=== PATIENT | female | born 1995 | race Caucasian/White ===

== ENCOUNTER 2017-07-03 19:18 | Emergency (ER) | payer BC ==
[2017-07-03 19:26] VITALS: TEMP 98.1
[2017-07-03] MEDS ORDERED: MICROGESTIN 1.51 TAB PO (19:45)
[2017-07-03] MEDS ORDERED: IMITREX 25MG TA25 MG PO (20:46)
[2017-07-03] MEDS ORDERED: NOVOLOG 100U100 U/M1 SQ (20:48)
[2017-07-03 21:55] VITALS: BP 133/88
[2017-07-03 22:57] VITALS: PULSE 81
== END 2017-07-03 22:58 | disposition home or self-care (01) ==
LOC: COL.ER 19:18
DX: R51 Headache (principal); E10.9 Type 1 diabetes mellitus without complications; F12.90 Cannabis use, unspecified, uncomplicated; Z79.4 Long term (current) use of insulin
CPT/HCPCS: J1200; J1885; J2765; J7030

== ENCOUNTER 2018-02-07 20:26 | Emergency (ER) | payer OTHER ==
[~2018-02-07] VITALS: Ht 167.6 cm; Wt 56.8 kg
[~2018-02-07 20:26] MED LIST: IMITREX 25MG TA25 MG PO; MICROGESTIN 1.51 TAB PO; NOVOLOG 100U100 U/M1 SQ
[2018-02-07 20:32] VITALS: TEMP 97.4
[2018-02-07] MEDS ORDERED: INDERAL40 MG PO (21:07)
[2018-02-07] MEDS ORDERED: REMERON45 MG PO (21:08)
[2018-02-07] MEDS ORDERED: REGLAN 10MG10 MG/TAB PO (21:56)
[2018-02-07 22:00] VITALS: BP 117/71; PULSE 86
== END 2018-02-07 22:06 | disposition home or self-care (01) ==
LOC: COL.ER 20:26
DX: G43.909 Migraine, unspecified, not intractable, without status migrainosus (principal); E10.9 Type 1 diabetes mellitus without complications
CPT/HCPCS: J1100; J1200; J1885; J2765; J7030